=== PATIENT | male | born 1955 | race Caucasian/White ===

== ENCOUNTER → 2016-08-28 | Outpatient (CLI) | payer OTHER ==
[~2016-08-28] MED LIST: SLEE25TA
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
== END ==
LOC: HRAD 13:40
DX: M25.551 Pain in right hip (principal)
CPT/HCPCS: 73502

== ENCOUNTER → 2016-10-03 | Outpatient (CLI) | payer OTHER ==
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
== END ==
LOC: HRAD 11:07
DX: M16.11 Unilateral primary osteoarthritis, right hip (principal)
CPT/HCPCS: 73502

== ENCOUNTER → 2016-10-11 | Outpatient (CLI) | payer OTHER ==
--- NOTE | 2016-10-11 13:37 | RADRPT ---
EXAM DATE/TIME: 10/11/2016 00:00 [facility] COMPARISON: No previous studies available for comparison. INDICATIONS : Osteoarthritis TECHNIQUE: Four-cuff ankle and brachial pressures were obtained. Pulse cuff waveform tracings of the ankles were recorded, and ankle-brachial indices were calculated. PRESSURES (mmHg): Brachial (arm): Right 93 Left 90 Ankle: Right 106 Left 129 ALBERTO: Right 1.14 Left 1.39 TBI: Right 1.16 Left 1.25 PULSED CUFF WAVEFORMS: Demonstrate normal amplitude bilaterally. CONCLUSION: Unremarkable ankle brachial indices. Juancarlos Jean MD FACR on October 11, 2016 at 13:34 Board Certified Radiologist. This report was verified electronically.
== END ==
LOC: HCAV 09:12
DX: M19.90 Unspecified osteoarthritis, unspecified site (principal)
CPT/HCPCS: 93922

== ENCOUNTER → 2017-03-08 | Outpatient (CLI) | payer OTHER ==
--- NOTE | 2017-03-08 12:37 | RADRPT ---
EXAM DATE/TIME: 03/08/2017 11:52 [facility] COMPARISON: No previous studies available for comparison. INDICATIONS : Evaluate for pneumonia, pneumothorax or communicable disease. Pre op right hip surgery. MEDICAL HISTORY : smoker SURGICAL HISTORY : None. ENCOUNTER: Initial ACUITY: 1 day PAIN SCORE: 0/10 LOCATION: Bilateral chest FINDINGS: PA and lateral views of the chest demonstrate the lungs to be symmetrically aerated without evidence of infiltrate or effusion. There is an oval 2.9 x 2.2 cm mass in the posterior left lower lobe. There are multiple calcified left hilar lymph nodes. A The cardiomediastinal contours are unremarkable. O sseous structures are intact. CONCLUSION: 2.9 x 2.2 cm oval mass in the posterior left lower lobe. Further evaluation with chest CT is recommen ded. Aguila Wagner MD on March 08, 2017 at 12:34 Board Certified Radiologist. This report was verified electronically.
== END ==
LOC: HRAD 11:33
DX: Z01.818 Encounter for other preprocedural examination (principal)
CPT/HCPCS: 71020

== ENCOUNTER → 2017-03-14 | Outpatient (CLI) | payer OTHER ==
[~2017-03-14] MED LIST changes: +IOHEXOL 350 MG/ML 10 ML VIAL (for RAD DIAG) IVCONTRAST ONE
--- NOTE | 2017-03-14 14:41 | RADRPT ---
EXAM DATE/TIME: 03/14/2017 13:27 [facility] COMPARISON: CHEST PA & LAT, March 08, 2017, 11:52. INDICATIONS : Evaluate lung mass. IV CONTRAST: 70 cc Omnipaque 350 (iohexol) IV RADIATION DOSE: 6.71 CTDIvol (mGy) MEDICAL HISTORY : None SURGICAL HISTORY : None. ENCOUNTER: Initial ACUITY: >1 yr PAIN SCALE: 0/10 LOCATION: chest TECHNIQUE: Volumetric scanning of the chest was performed. Using automated exposure control and adjustment of t he mA and/or kV according to patient size, radiation dose was kept as low as reasonably achievable to obtain optimal diagnostic quality images. DICOM format image data is available electronically for review and comparison. Follow-up recommendations for detected pulmonary nodules are based at a minimum on nodule size and pa tient risk factors according to Fleischner Society Guidelines. FINDINGS: LUNGS: There is a 2.5 x 1.6 cm peripheral subpleural solid mass in the posterior left lung base which corres ponds to abnormality noted on chest radiograph. There is adjacent linear opacity extending to the ext olivia lung base likely reflecting atelectasis. There is a calcified granuloma is noted in the superior segment of the left lower lobe. There is also a 3 mm nodule noted posteriorly in the right upper lob e. Mild paraseptal emphysema at the apices. PLEURA: There is no pleural thickening or pleural effusion. MEDIASTINUM: Multiple bulky densely calcified mediastinal and left hilar nodes. Heart is unremarkable without sign ificant pericardial effusion. Central pulmonary arteries are patent. AXILLAE: Within normal limits. No lymphadenopathy. SKELETAL: No focal lytic or blastic bony lesions. MISCELLANEOUS: The visualized upper abdominal organs demonstrate no acute abnormality. CONCLUSION: 1. Abnormality on chest radiograph corresponds to 2.5 x 1.6 cm peripheral subpleural solid mass in th e posterior left lung base. There is background of mild biapical paraseptal emphysema. There is adjac ent scarring extending from this lesion to the extreme lung base. This mass is malignant until proven otherwise. However, differential considerations include rounded atelectasis particularly if patient has a history of prior chronic pleural effusion. 2. Evidence for prior granulomatous disease with granulomas in the left lung and densely calcified hi lar and mediastinal nodes. 3. 3 mm subpleural nodule in the right upper lobe. This is nonspecific and may reflect a noncalcified granuloma amongst other etiologies. It does not necessarily indicate metastatic disease if the left lower lobe mass is proven malignant. Unfortunately, this is too small for further characterization wi th PET scan. Followup examination may be performed in 3 months to document for stability as clinicall y indicated. Henri Sanchez MD on March 14, 2017 at 14:31 Board Certified Radiologist. This report was verified electronically.
== END ==
LOC: HRAD 12:07
DX: R91.8 Other nonspecific abnormal finding of lung field (principal)
CPT/HCPCS: 71260; Q9967

== ENCOUNTER → 2017-04-26 | Outpatient (CLI) | payer OTHER ==
[~2017-04-26] MED LIST changes: -IOHEXOL 350 MG/ML 10 ML VIAL (for RAD DIAG) IVCONTRAST ONE
[2017-04-26 08:58] LABS: BLOOD GAS BASE EXCESS 0.2 mmol/L (-2-2); BLOOD GAS HCO3 24 mmol/L (22-26); BLOOD GAS METHEMOGLOBIN 1.3 % (0-2); BLOOD GAS O2 HGB SATURATION 94 % (90-100); BLOOD GAS OXYGEN CONTENT 20.4 Vol % (12.0-20.0); BLOOD GAS PCO2 37 mmHg (38-42); BLOOD GAS PO2 104 mmHg (61-120); BLOOD GAS TOTAL HGB 15.3 G/DL (12.0-16.0); CRITICAL VALUE NO; DRAW SITE RT RADIAL; FIO2 21 %; NUMBER OF ARTERIAL PUNCTURES 1; STAT NO; TEMP CORR TO 98.6; ULNAR PULSE PRESENT
--- NOTE | 2017-05-01 09:18 | RSPPFT ---
DATE OF PROCEDURE: 04/26/17 COMMENTS: Spirometry shows FVC of 3.4 at 72% of predicted, FEV1 of 2.1 at 54%, FEV1/FVC ratio is decreased. Flow is decreased at FEF 25, FEF 50, FEF 75 and FEF 25-75. There is a good response after bronchodilator treatment. Lung volumes show residual volume is increased. TLC is normal. Diffusion capacity is normal when corrected for lung volumes. Flow volume loop indicates an obstructive pattern. Room air arterial blood gases show pH of 7.43, PCO2 of 37, PO2 of 104, BiCarb of 24 and O2 Saturation at 94%. IMPRESSION: 1. Moderately severe obstructive lung disease. 2. Good response after bronchodilator treatment. 3. Lung volumes show mild hyperinflation. 4. Diffusion capacity is normal. 5. Blood gases show normal oxygenation on room air.
== END ==
LOC: HRSP 08:03
PROVIDERS: ATTEND Specialist
DX: J44.9 Chronic obstructive pulmonary disease, unspecified (principal); R91.1 Solitary pulmonary nodule
CPT/HCPCS: 36600; 82805; 94060; 94726; 94729

== ENCOUNTER → 2017-08-01 | Outpatient (CLI) | payer OTHER ==
--- NOTE | 2017-08-01 11:49 | RADRPT ---
EXAM DATE/TIME: 08/01/2017 10:29 [facility] COMPARISON: No previous studies available for comparison. INDICATIONS : Osteoarthritis. Bilateral hip pain. No recent injury. MEDICAL HISTORY : None. SURGICAL HISTORY : Hip arthroplasty, right. ENCOUNTER: Subsequent ACUITY: 2 weeks PAIN SCORE: 6/10 LOCATION: Bilateral hips FINDINGS: A frontal view of the pelvis and lateral views of both hips were performed. Sclerotic calcification right lower quadrant that appears to be bone island. Total hip on the right. Degenerative changes a bout the left hip. The bony pelvic ring is grossly intact. CONCLUSION: Degenerative changes on the left, total hip on the right. Juancarlos Jean MD FACR on August 01, 2017 at 11:44 Board Certified Radiologist. This report was verified electronically.
== END ==
LOC: HRAD 10:08
DX: M16.11 Unilateral primary osteoarthritis, right hip (principal)
CPT/HCPCS: 73521